=== PATIENT | male | born 1965 | race Caucasian/White ===

== ENCOUNTER 2021-03-26 15:24 | Outpatient (REF) | payer BC, SELFPAY ==
--- NOTE | ~2021-03-26 | CT_ITS ---
EXAMINATION: CT CHEST SCREENING CLINICAL INFORMATION: 28 pack-year smoking history. Current smoker. COMPARISON: None. TECHNIQUE: Multidetector volumetric CT imaging of the chest is performed without contrast using low dose technique. Additional 2D coronal and sagittal reformatted images and axial 3D maximum intensity projection (MIP) images are generated on the CT workstation. This CT examination was performed using dose optimization techniques as appropriate, variously including the following: *Automated exposure control *Adjustment of mA and/or kV according to patient size (this includes techniques or standardized protocols for targeted exams where dose is matched to indication/reason for exam; i.e. extremities or head) *Use of iterative reconstruction technique DLP: 69 mGy-cm FINDINGS: LUNGS: There is mild biapical pleural and parenchymal scarring. There is evidence of emphysema. There is a 2 x 4 mm semisolid or heterogeneous right upper lobe nodule axial image 61 series 5. This is adjacent to an ill-defined area of slight increased attenuation in the right upper lobe coronal reconstructed image 49 and sagittal reconstructed image 73. This area measures approximately 1.5 x 1.7 cm axial image 9 series 4. There is a 2 mm peripheral or subpleural right upper lobe nodule adjacent to the major fissure axial image 170 series 5 The lungs are otherwise clear. No endobronchial or endotracheal lesion is seen. MEDIASTINUM: There is very minimal coronary artery calcification. The mediastinum is otherwise normal. PLEURA: There is no pleural effusion. No pleural mass or thickening. AXILLA: No lymphadenopathy. UPPER ABDOMEN: There are 2 low-attenuation liver lesions probably representing cysts measuring 1.5 x 2.5 cm and the left lobe axial image 55 and 1 x 1.2 cm in the medial segment of the left lobe axial image 63 series 3. OSSEOUS STRUCTURES: There are degenerative changes of the spine. CT/CT lung screening IMPRESSION: Emphysema. Biapical pleural parenchymal scarring. Ill-defined area of slight increased attenuation seen in the right upper lobe and small adjacent 2 x 4 mm semisolid nodule. Minimal coronary artery calcification. Probable liver cysts. ASSESSMENT: Lung-RADS category 3: Probably Benign RECOMMENDATION: Six-month low-dose chest CT follow-up recommended.
== END 2021-03-26 15:25 | disposition home or self-care (01) ==
LOC: HO.CT 15:24
PROVIDERS: PCP Internal Medicine Geriatric Medicine; Visit Provider Physician Assistant Medical
DX: Z12.2 Encounter for screening for malignant neoplasm of respiratory organs (principal); F17.210 Nicotine dependence, cigarettes, uncomplicated
CPT/HCPCS: 71271; G0296

== ENCOUNTER 2023-01-20 07:52 | Outpatient (REF) | payer BC, SELFPAY ==
[2023-01-20 08:11] LABS: Hematocrit 41.4 % (42.0-52.0); Hemoglobin 13.8 g/dl (14.0-18.0); Mean Corpuscular HGB Conc 33.3 g/dl (31.0-36.0); Mean Corpuscular Hemoglobin 30.4 pg (27.0-33.0); Mean Corpuscular Volume 91.2 fL (80.0-98.0); Mean Platelet Volume 8.2 fL (9.4-12.4); Platelet Count 300 X10*3/uL (160-400); Red Blood Count 4.54 X10*6/uL (4.60-5.80); Red Cell Distribution Width 12.6 % (11.0-16.0); White Blood Count 8.5 X10*3/uL (4.8-10.8)
[2023-01-20 08:50] LABS: Alanine Aminotransferase 14 U/L (0-40); Albumin Level 4.3 g/dL (3.5-5.0); Alkaline Phosphatase 67 U/L (39-117); Anion Gap 11 (12-20); Aspartate Amino Transferase 24 U/L (5-37); Bilirubin Total 0.6 mg/dL (0.0-1.0); Blood Urea Nitrogen 12 mg/dL (9-16); Calcium 9.7 mg/dL (8.4-10.2); Carbon Dioxide 26 mmol/L (22-29); Chloride 106 mmol/L (96-108); Cholesterol 323 mg/dL; Estimated Glomerular Filt Rate > 60; Glucose Random 110 mg/dL (60-115); HDL Cholesterol 40 mg/dL; LDL Cholesterol Calculated 236 mg/dl; Sodium 139 mmol/L (135-145); Total Protein 7.3 g/dL (6.5-8.0); Triglycerides 239 mg/dL
[2023-01-20 09:05] LABS: TSH reflex Free T4 1.45 uIU/mL (0.32-4.0)
[2023-01-20 09:07] LABS: Prostate Specific Antigen 0.46 ng/mL (<0.05-4.0)
== END 2023-01-20 07:53 | disposition home or self-care (01) ==
LOC: HO.LAB 07:52
PROVIDERS: PCP Internal Medicine Geriatric Medicine; Visit Provider Internal Medicine Geriatric Medicine
DX: Z12.5 Encounter for screening for malignant neoplasm of prostate (principal); Z13.220 Encounter for screening for lipoid disorders; Z13.1 Encounter for screening for diabetes mellitus; F41.8 Other specified anxiety disorders; N40.1 Benign prostatic hyperplasia with lower urinary tract symptoms; Z72.0 Tobacco use
CPT/HCPCS: 36415; 80053; 80061; 84153; 84443; 85027

== ENCOUNTER 2023-06-12 08:43 | Outpatient (REF) | payer BC, SELFPAY ==
--- NOTE | ~2023-06-12 | CT_ITS ---
EXAMINATION: CT CHEST LOW-DOSE SCREENING WITHOUT CONTRAST HISTORY: Asymptomatic patient meeting criteria for lung screening. PATIENT PACK-YEAR HISTORY: 30 Current Smoker: Yes If former smoker, years since quitting: N/A COMPARISON: CT chest screening 03/26/2021. TECHNIQUE: Multidetector volumetric noncontrast CT imaging of the chest was obtained using low-dose screening CT technique. Axial thin section 0.625 mm reformations in soft tissue and lung windows were obtained. Sagittal and coronal reformations were obtained. Axial MIP images were also created and reviewed. RECONSTRUCTED WIDTH: 1.25 mm x 1.[address] examination was performed using dose optimization techniques as appropriate, variously including the following: *Automated exposure control *Adjustment of mA and/or kV according to patient size (this includes techniques or standardized protocols for targeted exams where dose is matched to indication/reason for exam; i.e. extremities or head) *Use of iterative reconstruction technique TOTAL EXAM DLP: 54 mGy-cm CTDIvol: 1.05 mGy FINDINGS: LUNGS: Mild emphysematous changes are present. Biapical pleural-parenchymal thickening again noted. Lungs bilaterally symmetrically expanded. No effusion or pneumothorax. Central airways patent. Again seen is an ill-defined semisolid density at the right apex measuring about 1.5 cm, unchanged for over 2 years (5:67 compare prior 5:69). 5 mm nodular right upper lobe density just above this is unchanged (5:61 compare prior 5:63). 2 mm perifissural right upper lobe lymph node, unchanged (5:173 compare prior 5:170). There are a few areas of endobronchial secretions noted (for example on the left 5:202 and on the right 5:205). No other pulmonary parenchymal abnormalities are seen. LYMPHATIC STRUCTURES: No mediastinal, hilar or axillary adenopathy. Small amount of right pericardial fluid seen (3:52). THYROID GLAND: Unremarkable to the extent seen. CARDIOVASCULAR STRUCTURES: Aortic and heart size normal. Minimal coronary artery calcifications. No pericardial effusion. UPPER ABDOMEN: Benign hepatic cysts are present. Included portions of the solid organs in the upper abdomen unremarkable on noncontrast imaging. OSSEOUS STRUCTURES: No suspicious focal findings. SPINAL COMPRESSION: Absent. CT/CT lung screening IMPRESSION: Stable ill-defined semisolid density right apex 1.5 cm, unchanged from prior. Small unchanged 5 mm nodule just above this. No findings at this time which are suspicious for malignancy. LUNG-RADS CATEGORY ASSESSMENT: Benign. INCIDENTAL FINDINGS (S CATEGORY): Finding: No incidental findings. Significance category: Normal or normal variant. RECOMMENDATION: Low-dose lung CT overall in 1 year. Visual estimate of coronary calcified plaque burden: Minimal. However, this exam cannot replace a dedicated cardiac CT calcium score for accurate assessment.
== END 2023-06-12 08:44 | disposition home or self-care (01) ==
LOC: HO.CT 08:43
PROVIDERS: PCP Internal Medicine Geriatric Medicine; Visit Provider Physician Assistant Medical
DX: Z12.2 Encounter for screening for malignant neoplasm of respiratory organs (principal); F17.210 Nicotine dependence, cigarettes, uncomplicated
CPT/HCPCS: 71271

== ENCOUNTER 2023-11-24 08:33 | Outpatient (REF) | payer BC, SELFPAY ==
[2023-11-24 08:58] LABS: MANUAL DIFF FLAG NO
[2023-11-24 09:39] LABS: Basophils Percent Auto 0.3 % (0-2); Eosinophils Absolute Auto 0.2 X10*3/uL (0.0-0.4); Eosinophils Percent Auto 2.1 % (0-4); Hemoglobin 14.1 g/dl (14.0-18.0); Imm Gran Abs Auto 0.03 X10*3/uL (0.00-0.03); Imm Gran Pct Auto 0.3 % (0.0-0.4); Lymphocytes Absolute Auto 2.3 X10*3/uL (1.2-4.9); Lymphocytes Percent Auto 26.7 % (20-40); Mean Corpuscular HGB Conc 34.4 g/dl (31.0-36.0); Mean Corpuscular Volume 90.1 fL (80.0-98.0); Mean Platelet Volume 8.3 fL (9.4-12.4); Monocytes Absolute Auto 0.7 X10*3/uL (0.1-1.2); Monocytes Percent Auto 8.3 % (2-11); Neutrophils Absolute Auto 5.3 x10*3/uL (2.0-8.3); Neutrophils Percent Auto 62.3 % (45-73); Platelet Count 318 X10*3/uL (160-400); Red Blood Count 4.55 X10*6/uL (4.60-5.80); Red Cell Distribution Width 12.3 % (11.0-16.0); White Blood Count 8.6 X10*3/uL (4.8-10.8)
[2023-11-24 10:15] LABS: Alanine Aminotransferase 21 U/L (0-40); Albumin Level 4.5 g/dL (3.5-5.0); Alkaline Phosphatase 73 U/L (39-117); Anion Gap 11 (12-20); Aspartate Amino Transferase 31 U/L (5-37); Bilirubin Total 0.6 mg/dL (0.0-1.0); Blood Urea Nitrogen 14 mg/dL (9-16); Calcium 9.6 mg/dL (8.4-10.2); Carbon Dioxide 29 mmol/L (22-29); Chloride 105 mmol/L (96-108); Cholesterol 259 mg/dL (<200); Estimated Glomerular Filt Rate > 60; Glucose Random 115 mg/dL (60-115); HDL Cholesterol 40 mg/dL (>40); Potassium 4.1 mmol/L (3.3-5.1); Sodium 141 mmol/L (135-145); Total Protein 7.4 g/dL (6.5-8.0); Triglycerides 496 mg/dL (<150)
[2023-11-27 08:43] LABS: HIV AB/AG Nonreactive (Nonreactive); HIV Num 1 0.04 S/CO (0.00-0.99); ~HepC Num1 0.06 S/CO (0.00-0.79); ~Hepatitis C Antibody Nonreactive (Nonreactive)
== END 2023-11-24 08:34 | disposition home or self-care (01) ==
LOC: HO.LAB 08:33
PROVIDERS: PCP Internal Medicine Geriatric Medicine; Visit Provider Internal Medicine Geriatric Medicine
DX: E78.00 Pure hypercholesterolemia, unspecified (principal); Z72.0 Tobacco use; F41.8 Other specified anxiety disorders; Z00.00 Encounter for general adult medical examination without abnormal findings; F10.90 Alcohol use, unspecified, uncomplicated; Z11.59 Encounter for screening for other viral diseases; Z11.4 Encounter for screening for human immunodeficiency virus [HIV]
CPT/HCPCS: 36415; 80053; 80061; 85025; 86803; 87389

== ENCOUNTER 2025-02-28 08:53 | Outpatient (AMB) | payer BC, SELFPAY ==
--- NOTE | 2025-02-28 08:58 | MHC.OFFVIS ---
Vital Signs 02/28/25 09:15 Height 5 ft 10 in Weight 154 lb BMI 22.1 BP 126/86 Blood Pressure Location Rt brachial Position Sitting Pulse 80 Pulse Source Pulse Oximeter Pulse Oximetry (%) 98 Oxygen Delivery Method Room Air Intake Visit Reasons: colon adenoma Intake Note: New pt for recall colo screening. CC; Pt denies any GI sx or concerns at this time. Pt overdue for recall colo by 2 years. Research Management Associate Required: No Accompanied by: Self / Same As Patient Allergies No Known Allergies Allergy (Verified 02/28/25 09:08) HPI HPI colon adenoma: Details: 60 year old? male with past medical history of pituitary adenoma transsphenoidal resection in 2018, depression, BPH is here today for pre colonoscopy screening.? Patient was sent to us by his PCP.? History of colonoscopies in 2013 and 2018. Tubular adenomas found. Family history of CRC.? Patient denies any gastrointestinal symptoms in the past or at present.?? Denies history of difficulty with sedation or anesthesia in the past.? Negative for history of sleep apnea.? Denies any history of cardiac, renal, pulmonary, or hepatic disease.?? No history of infectious? diseases like hepatitis A, B, C, HIV or tuberculosis.? Patient is not on any anticoagulation PFSH Medical History Nicotine dependence, cigarettes, uncomplicated History of pituitary adenoma BPH (benign prostatic hyperplasia) Depression Surgical History H/O colonoscopy History of brain surgery Family History Father Colon cancer Social History Alcohol intake: current Alcohol intake frequency: a few times a week Patient Tobacco Use Status: Current everyday Tobacco user Tobacco use type: Cigarette Cigarette Packs Per Day: 1 Years Smoked: 41 - onset 16 -3/4-1ppd x 41yrs, 35pyh Review of Systems Const Denies weight gain and Denies weight loss ENT Reports no additional complaints, Denies dysphagia and Denies odynophagia Card Reports no additional complaints Resp Reports no additional complaints GI Denies abdominal pain, Denies belching, Denies melena, Denies bloating, Denies change in bowel habits, Denies dysphagia, Denies excessive flatus, Denies dyspepsia, Denies heartburn, Denies diarrhea, Denies loose stools, Denies nausea, Denies odynophagia and Denies vomiting Reports no additional complaints Musc Reports no additional complaints Neuro Reports no additional complaints Psych Reports no additional complaints Endo Reports no additional complaints Physical Exam Vital Signs: Last Vital Signs Pulse 80 02/28/25 09:15 BP 126/86 02/28/25 09:15 Pulse Ox 98 02/28/25 09:15 Oxygen Delivery Method Room Air 02/28/25 09:15 BMI result Body Mass Index 22.1 Const General: healthy appearing, no acute distress and well developed Nutritional Appearance: well nourished Orientation/consciousness: patient oriented x3 Resp Effort & Inspection: normal respiratory effort, able to speak in complete sentences, no tracheal deviation and symmetric chest movement Auscultation: clear to auscultation bilaterally Cardio Rate: regular rate GI Inspection: Yes normal to inspection and No distended Palpation (GI): Soft to palpation, not firm, nontender and No hepatosplenomegaly present Auscultation: normal bowel sounds General: Yes no CVA tenderness Back/Spine/Pelvis Back: no CVA tenderness Skin General skin exam: elasticity normal, turgor normal and dry skin Neuro General: patient oriented x3 Psych Appearance: grossly normal Mental Status: mental status grossly normal Assessment & Plan Assessment & Plan (1) Screen for colon cancer: Code(s): Z12.11 - Encounter for screening for malignant neoplasm of colon Plan Patient denies any GI, cardiac or respiratory symptoms.? Denies any issues with anesthesia in the past.? Denies any history of sleep apnea.? No history infectious diseases in the past or present.? Not on any anticoagulation therapy.? Family history of CRC.? Patient denies melena, hematochezia, unintentional weight loss or ribbon like stools.? Discussed at length the pre-procedure,? prep, diet & medications as well as what to expect prior, during and after the procedure.?? Stressed the importance of good bowel prep.? Recommended the use of Vaseline or Calmoseptine OTC & baby wipes with bowel movements to promote comfort.? ?Patient verbalizes understanding and agrees to plan of care.? He was given the opportunity to ask questions and all questions answered.? We will see him after the procedure.? Orders: Referrals GI Procedure Notification Z12.11 - Encounter for screening for malignant neoplasm of colon Medications: New bisacodyl (Dulcolax (bisacodyl)) take 4 tabs at noon the day before your colonoscopy 20 mg (4 x 5 mg) PO ONCE 4 tabs 0RF constipation 1 day Z12.11 - Encounter for screening for malignant neoplasm of colon polyethylene glycol 3350 (Miralax) As directed by gastroenterology department at [facility] 238 grams PO ONCE 238 grams 0RF Z12.11 - Encounter for screening for malignant neoplasm of colon Coding Level of Care Code New Pt Level 3 (15064) Diagnoses Screen for colon cancer Z12.11 Time Spent (min) 40 Comment 30 minutes spent with patient and additional 10 minutes spent reviewing his records
[2025-02-28 09:15] VITALS: BP 126/86; PULSE 80; O2SAT 98; BMI 22.1
--- OUTSIDE RECORDS SUMMARY | 2025-02-28 09:29 | XMS_ITS | Encounter Summary ---
Author Organization [facility] Address [address] [facility] [address] [place] [address] Care Team Providers Care Mulcher Operator Name Role Phone Name, Maxime SLOAN Primary Care Provider [phone] Encounter Details Date Type Department Care Team (Late st Contact Info) Description 09/09/2022 Orders Only [facility] [address] [place] [address] Jeannie Smith LPN Social History Tobacco Use Types Packs/Day Years Used Date Smoking Tobacco: Never Assessed Sex and Gender Information Value Date Recorded Sex Assigned at Male 04/04/2022 10:31 AM EDT Legal Sex Male 10:31 AM EDT Gender Identity Male 04/04/2022 10:31 AM EDT Sexual Orientation Straight 04/04/2022 10 :31 AM EDT documented as of this encounter Plan of Treatment Not on file documented as of this encounter Procedures Procedure Name Priority Date/Time Associated Diagnosis Comments TSH W/REFLEX TO FT4 Routine 01/20/2023 8 :03 AM EDT CBC Routine 01/20/2023 8:03 AM EDT PSA, TOTAL Routine 01/20/2023 8:03 AM EDT LIPID PANEL, STANDARD Routine 01/20/2023 8:03 AM EDT COMPREHENSIVE METABOLIC PANEL Routine 01/20/2023 8:03 AM EDT documented in this encounter Results * PSA,Total (01/20/2023 8:03 AM EDT) Prostate Specific Antigen 0.46 <0.05 - 4.0 ng/mL [facility] Comment:PSA methodology: Jaskaran Winkler i ChemiluminescentMicroparticle Immunoassay (CMIA) 01/20/2023 8:03 AM EDT 01/20/2023 8:04 AM EDT us Maxime Frias MD LAB BLOOD ORDERABLES Final Resul t Performing Organization Address [facility] Co de Phone Number [facility] [address] [place] [phone] * TSH W/Reflex to FT4 (01/20/2023 8:03 AM EDT) TSH reflex Free T4 1.45 0.32 - 4.0 uIU/mL [facility] 01/20/2023 8:03 AM EDT 01/20/2023 8:04 AM EDT us Maxime Frias MD LAB BLOOD ORDERABLES Final Resul t Performing Organization Address [facility] Co de Phone Number [facility] [address] [place] [phone] * Lipid Panel, Standard (01/20/2023 8:03 AM EDT) Triglycerides 239 mg/dL [facility] Comment:Desirable Triglyceri de: less than 150 mg/dLBorderline High Triglyceride 150-199 mg/dLHigh Triglyceride: 200-499 mg/dLVery High Triglyceride: greater than or equal to 5OO mg/dL Cholesterol 323 mg/dL [facility] Comment:Desirable Cholestero l: less than 200 mg/dLBorderline High Cholesterol: 200-239 mg/dLHigh Cholesterol: greater than 239 mg/dL LDL Cholesterol Calculated 236 mg/dl [facility] Comment:Desirable LDL: less than 100 mg/dLNear Optimal/Above Optimal LDL: 110- 129 mg/dLBorderline High LDL: 130-159 mg/dLHigh LDL: 160-189 mg/dLVery High LDL: greater than or equal to 190 mg/dL HDL Cholesterol 40 mg/dL [facility] Comment:Desirable HDL: great er than 40 mg/dL Note: This HDL assay may give artificially low results in patients with liver disease. 01/20/2023 8:03 AM EDT 01/20/2023 8:04 AM EDT us Maxime Name LAB BLOOD ORDERABLES Final Resul t [facility] [address] [place] [phone] * (ABNORMAL) Comprehensive Metabolic Panel (01/20/2023 8:03 AM EDT) Sodium 139 135 - 145 mmol/L [facility] Potassium 4.0 3.3 - 5.1 mmol/L [facility] Chloride 106 96 - 108 mmol/L [facility] Carbon Dioxide 26 22 - 29 mmol/L [facility] Anion Gap 11(L) 12 - 20 [facility] Urea Nitrogen (BUN) 12 9 - 16 mg/dL [facility] Creatinine, Serum 0.91 0.5 - 1.4 mg/dL [facility] Estimated Glomerular Filt Rate >60 [facility] Comment:NOTE: For -Am erican individuals, multiply the result by 1.210.Chronic Kidney Disease: Estimated GFR < 60 mL/min/[id number] Kidney Disease: Estimated GFR < 15 mL/min/1.73m2 Glucose 110 60 - 115 mg/dL [facility] Calcium 9.7 8.4 - 10.2 mg/dL [facility] Bilirubin, Total 0.6 0.0 - 1.0 mg/dL [facility] Aspartate Amino Transferase 24 5 - 37 U/L [facility] Alanine Aminotransferase 14 0 - 40 U/L [facility] Total Protein 7.3 6.5 - 8.0 g/dL [facility] Albumin Level 4.3 3.5 - 5.0 g/dL [facility] Alkaline Phosphatase 67 39 - 117 U/L [facility] 01/20/2023 8:03 AM EDT 01/20/2023 8:04 AM EDT us Maxime Frias MD LAB BLOOD ORDERABLES Final Resul t Performing Organization Address [facility]/ZIP Co de Phone Number [facility] [address] [place] [phone] * (ABNORMAL) CBC (01/20/2023 8:03 AM EDT) White Blood Count 8.5 4.8 - 10.8 X10*3/uL [facility] Red Blood Count 4.54(L) 4.60 - 5.80 X10*6/uL [facility] Hemoglobin 13.8(L) 14.0 - 18.0 g/dl [facility] Hematocrit 41.4(L) 42.0 - 52.0 % [facility] Mean Corpuscular Volume 91.2 80.0 - 98.0 fL [facility] Mean Corpuscular Hemoglobin 30.4 27.0 - 33.0 pg [facility] Mean Corpuscular HGB Conc 33.3 31.0 - 36.0 g/dl [facility] Red Cell Distribution Width 12.6 11.0 - 16.0 % [facility] Platelet Count 300 160 - 400 X10*3/uL [facility] Mean Platelet Volume 8.2(L) 9.4 - 12.4 fL [facility] NRBC Pct Auto 0.0 0.0 - 0.2 /100WBC [facility] NRBC Abs Auto 0.000 0.0 - 0.012 X10*3/uL [facility] 01/20/2023 8:03 AM EDT 01/20/2023 8:04 AM EDT us Maxime Frias MD LAB BLOOD ORDERABLES Final Resul t Performing Organization Address City/[facility]/ZIP Co de Phone Number [facility] [address] [place] [phone] documented in this encounter Visit Diagnoses Not on filedocumented in this encounter Care Teams Mulcher Operator Relationship Specialty Start Date End Date Name, MD Maxime [address] [place] [address] PCP - General Family Medicine 09/14/16 documented as of this encounter
--- OUTSIDE RECORDS SUMMARY | 2025-02-28 09:29 | XMS_ITS | Clinical Summary ---
Author Organization [employer] Address [address] [place] [address] Care Team Providers Care Nutritionist Public Health Name Role Phone Name, Maxime SLOAN Primary Care Provider [phone] Allergies No known active allergies Medications PARoxetine (Paxil) 40 MG tabletIndications:Nina bitual alcohol use,Tobacco use,High cholesterol,Mixed anxiety and depressive disorder,Need for hepatitis C screening test,Screening for HIV (human immunodeficiency virus) Take 1 tablet (40 mg) by mouth in the morning. 90 tablet 3 04/24/20 24 025 Active permethrin (Elimite) 5 % creamIndications:Bassam h Apply to all areas of the body from the neck to soles of feet including under finger and toe nails. Leave for for 8-14 hours before rinsing. May repeat after 14 days if symptoms still persistent 60 g 1 07/03/19 25 Active tamsulosin (Flomax) 0.4 MG 24 hr capsule TAKE 1 CAPSULE BY MOUTH EVERY DAY 1/2 HOUR FOLLOWING THE SAME MEAL EACH DAY 90 capsule 09/11/19 25 Active hydrOXYzine HCl (Atarax) 25 MG tabletIndications:Ra sh TAKE 1 TABLET BY MOUTH IF NEEDED IN THE MORNING,AT NOON,IN THE EVENING AND AT BEDTIME FOR ITCHING 360 tablet 10/26/19 25 Active atorvastatin (Lipitor) 40 MG tablet TAKE 1 TABLET BY MOUTH EVERY DAY 90 tablet 3 12/21/19 25 Active Active Problems Problem Noted Date Diagnosed Date Tobacco use 05/18/2023 Assessment & Plan (12/19/2023 9:49 AM EDT): He is recommended to quit, Low rad CT is negative this year Habitual alcohol use 05/18/2023 Pituitary macroadenoma 01/31/2023 Overview (12/19/2023): s/p resection of pituitary adenoma 2019 at [facility] [place] He does not require endocrine supplementation after surgery He follows with yearly eye exams at [facility] No headaches or residual visual field problems Assessment & Plan (12/19/2023 9:45 AM EDT): s/p resection of pituitary adenoma 2019 at [facility] [place] He does not require endocrine supplementation after surgery He follows with yearly eye exams at [facility] No headaches or residual visual field problems High cholesterol 01/31/2023 Assessment & Plan (12/19/2023 9:46 AM EDT): We discussed results of recent blood work He is recommended to cut down on alcohol Exercise more I doubled his dose of statin Benign prostatic hyperplasia with lower urinary tract symptoms 09/14/2016 Mixed anxiety and depressive disorder 09/14/2016 Encounters Date Type Department Care Team Description 02/20/2025 Patient Outreach [address] [address] Maxime Frias MD Pre-visit Planning ((Unable to reach for PVP screening, LVM) to be completed in office ) 12/20/2024 Refill [facility] [address] [place] [address] Maxime Frias MD from Last 3 Months Immunizations Immunization Administration Dates Next Due Influenza injectable quadriv alent preservative free 05/18/2023,03/01/2022,03/02/2021,2019 Pfizer Covid-19 Vaccine 12+ 04/22/2021,,09/12/2020 Pfizer Covid-19 Vaccine 12+ Bivalent 05/04/2022 Pfizer Covid-19 Vaccine 12+ noah-sucrose ([place] Cap) 09/15/2021 Pfizer Covid-19 Vaccine [id number] 04/22/2023 Pneumococcal Conjugate PCV 20 09/13/2023 Tdap 12/14/2016 Social History Tobacco Use Types Packs/Day Years Used Date Smoking Tobacco: Every Day Cigarettes Tobacco Cessation:Ready to Q uit: Not Asked; Counseling Given: Not Answered Alcohol Use Standard Drinks/Week Comments Yes 12 (1 standard drink = 0.6 oz pu re alcohol) Alcohol Answer Date Recorded How often do you have a drink containing alcohol ? 4 12/19/2023 How many drinks containing a lcohol do you have on a typical day when you are drinking? 1 12/19/2023 How often do you have six or more drinks on one occasion? 3 12/19/2023 Depression Answer Date Recorded Patient Health Questionnaire-9 Score 1 02/12/2024 Patient Health Questionnaire-9 Score 1 02/12/2024 Last PHQ-9: Questionnaire Data Not on file 0 02/12/2024 Housing Stability Answer Date Recorded What is your housing situation today? I have td oscar 12/19/[address] you li ve. Do you have problems with any of the following? None of the above 12/19/2023 Food Insecurity Answer Date Recorded Within the past 12 months, y ou worried that your food would run out before you got money to buy more: Never True 12/19/2023 Within the past 12 months,th e food you bought just didn't last and you didn't have enough money to get more: Never True Transportation Answer Date Recorded In the past 12 months, has l ack of transportation kept you from medical appts, meetings, work or from getting things needed for daily living? No 12/19/2023 Utilities Answer Date Recorded In the past 12 months, has t he electric, gas, oil or water company threatened to shut off services in your home? No 12/19/2023 Depression Answer Date Recorded Patient Health Questionnaire-2 Score 0 02/12/2024 Internet Access Answer Date Recorded Internet Access Q1 No 02/05/2024 Internet Access Q2 I do not want or need it 07/2023 Sex and Gender Information Value Date Recorded Sex Assigned at Male 04/04/2022 10:31 AM EDT Legal Sex Male 10:31 AM EDT Gender Identity Male 04/04/2022 10:31 AM EDT Sexual Orientation Straight 04/04/2022 10 :31 AM EDT Last Filed Vital Signs Vital Sign Reading Time Taken Comments Blood Pressure 131/78 09/25/2024 9:52 AM EDT Pulse 63 09/25/2024 9:52 AM EDT Temperature 36.1 C (96.9 F) 09/25/2024 9:52 AM EDT Respiratory Rate 18 09/25/2024 9:52 AM EDT Oxygen Saturation 96% 09/25/2024 9:52 AM EDT Inhaled Oxygen Concentration - - Weight 72.9 kg (160 lb 12.8 oz) 09/25/2024 9:52 AM EDT Height 177.8 cm (5' 10 ) 09/25/2024 9:52 AM EDT Body Mass Index 23.07 09/25/2024 9:52 AM EDT Plan of Treatment Health Maintenance Due Date Last Done Comments CT Colonography 1964 FIT DNA/Cologuard 1964 FIT 1964 FOBT 1964 Sigmoidoscopy 1964 Disability Screening 1964 Alcohol/Substance Use Screening 1976 Zoster Vaccines (1 of 2) 02/01/2014 Colonoscopy 11/10/2022 11/10/2017 Colorectal Cancer Screening 11/10/2022 SDOH Screening 12/18/2024 12/19/2023 COVID-19 Vaccine ( season) 2025 04/22/2023, 05/04/2022, 09/15/2021, Additional history exists Influenza Vaccine (#1) 2025 , 03/01/2022, 03/02/2021, Additional history exists Depression Screening 02/11/2025 02/12/2024, 02/12/20 24 Tobacco Screening 09/25/2025 09/25/2024 DTaP/Tdap/Td Vaccines (2 - Td or Tdap) 12/14/2026 12/14/2016 Lipid Panel 11/23/2028 11/24/2023, 01/20/2023 RSV Patients and Patients Aged 60 years or older (1 - 1-dose 75+ series) 02/01/2039 Pneumococcal Vaccine: 50+ Years Completed 09/13/2023 HIV Screening Completed 11/24/2023 Hepatitis C Screening Completed 11/24/2023 HIB Vaccines Aged Out No longer eligi ble based on patient's age to complete this topic HPV Vaccines Aged Out No longer eligi ble based on patient's age to complete this topic Hepatitis A Vaccines Aged Out No long er eligible based on patient's age to complete this topic Hepatitis B Vaccines Aged Out No long er eligible based on patient's age to complete this topic IPV Vaccines Aged Out No longer eligi ble based on patient's age to complete this topic Meningococcal B Vaccine Aged Out No l onger eligible based on patient's age to complete this topic Meningococcal Vaccine Aged Out No fatou eduardo eligible based on patient's age to complete this topic RSV under 20 months Aged Out No longe r eligible based on patient's age to complete this topic Rotavirus Vaccines Aged Out No longer eligible based on patient's age to complete this topic Procedures Procedure Name Priority Date/Time Associated Diagnosis Comments HEPATITIS C ANTIBODY Routine 11/24/2023 8:57 AM EDT Habitual alcohol use Tobacco use High cholesterol Mixed anxiety and depressive disorder Need for hepatitis C screening test Screening for HIV (human immunodeficiency virus) HIV 1/2 ANTIGEN/ANTIBODY, FOURTH GENERATION W/RFL Routine 11/24/2023 8:57 AM EDT Habitual alcohol use Tobacco use High cholesterol Mixed anxiety and depressive disorder Need for hepatitis C screening test Screening for HIV (human immunodeficiency virus) LIPID PANEL, STANDARD Routine 11/24/2023 8:57 AM EDT Habitual alcohol use Tobacco use High cholesterol Mixed anxiety and depressive disorder Need for hepatitis C screening test Screening for HIV (human immunodeficiency virus) HM COLONOSCOPY Routine 11/10/2017 from Last 3 Months or Most Recently Relevant to Health Maintenance Results * Hepatitis C Ab (11/24/2023 8:57 AM EDT) Hepatitis C Antibody Nonreactive Nonreactive [facility] Comment:Antibodies to HCV no t detected; does not exclude early acuteHCV infection. Blood Venous blood specimen / Unknown 11/24/2023 8:57 AM EDT 11/24/2023 8:57 AM EDT us Maxime Frias MD LAB BLOOD ORDERABLES Final Resul t [facility] [address] [place] [phone] * HIV-1/2 Antigen and Antibodies, Fourth Generation, with Reflexes (11/24/2023 8:57 AM EDT) HIV AB/AG Nonreactive Nonreactive [facility] Comment:HIV-1 p24 Ag and/or HIV-1/HIV-2 Ab not detected.A test result that is nonreactive does not exclude thepossibility of exposure to or infection with HIV-1 and/orHIV-2. Nonreactive results in this assay for individualswith prior exposure to HIV-1 and/or HIV-2 may be due toantigen and antibody levels that are below the limit ofdetection of this assay.The iHandle HIV Ag/Ab Combo assay result andsupplemental assay results should be interpreted inconjunction with the patient's clinical presentation,history and other laboratory results. If the results areinconsistent with clinical evidence, additional testing issuggested to confirm the result. Blood Venous blood specimen / Unknown 11/24/2023 8:57 AM EDT 11/24/2023 8:57 AM EDT us Maxime Name LAB BLOOD ORDERABLES Final Resul t [facility] [address] [place] [phone] * (ABNORMAL) Lipid Panel, Standard (11/24/2023 8:57 AM EDT) Triglycerides 496(H) <150 mg/dL [facility] Comment:Desirable Triglyceri de: less than 150 mg/dLBorderline High Triglyceride 150-199 mg/dLHigh Triglyceride: 200-499 mg/dLVery High Triglyceride: greater than or equal to 5OO mg/dL Cholesterol 259(H) <200 mg/dL [facility] Comment:Desirable Cholestero l: less than 200 mg/dLBorderline High Cholesterol: 200-239 mg/dLHigh Cholesterol: greater than 239 mg/dL LDL Cholesterol Calculated TNP <100 mg/dL [facility] Comment:Unable to calculate the LDL. The formula of FriedwaldAraiza, and Moe is only valid if the triglycerides areless than 400 mg/dl. HDL Cholesterol 40(L) >40 mg/dL [facility] Comment:Desirable HDL: great er than 40 mg/dL Note: This HDL assay may give artificially low results in patients with liver disease. Blood Venous blood specimen / Unknown 11/24/2023 8:57 AM EDT 11/24/2023 8:57 AM EDT us Maxime Frias MD LAB BLOOD ORDERABLES Final Resul t [facility] [address] [place] [phone] * (ABNORMAL) Colonoscopy (11/10/2017) Colonoscopy Abnormal(A ) Normal us Maxime Frias MD HEALTH MAINTENANCE Final Result from Last 3 Months or Most Recently Relevant to Health Maintenance Insurance HMO Care Teams Nutritionist Public Health Relationship Specialty Start Date End Date Name, MD Maxime [address] [place] [address] PCP - General Family Medicine 09/14/16
--- OUTSIDE RECORDS SUMMARY | 2025-02-28 09:29 | XMS_ITS | Encounter Summary ---
Author Organization [employer] Address [address] [facility] [address] [address] [place] [address] Care Team Providers Care Refrigerator Crater Name Role Phone Name, Maxime SLOAN Primary Care Provider [phone] Reason for Visit * Reason Onset Date Comments Med Refill 05/09/2023 Encounter Details Date Type Department Care Team ([facility] st Contact Info) Description 05/09/2023 Telephone [facility] [address] [place], [place] [phone] Name, MD Maxime [address] [place] [address] Med Refill Social History Tobacco Use Types Packs/Day Years Used Date Smoking Tobacco: Every Day Cigarettes Alcohol Use Standard Drinks/Week Comments Yes 12 (1 standard drink = 0.6 oz pu re alcohol) Depression Answer Date Recorded Patient Health Questionnaire-9 Score 6 01/31/2023 Housing Stability Answer Date Recorded What is your housing situation today? I have td oscar 04/04/[address] you li ve. Do you have problems with any of the following? None of the above 04/04/2023 Food Insecurity Answer Date Recorded Within the past 12 months, y ou worried that your food would run out before you got money to buy more: Never True 04/04/2023 Within the past 12 months,th e food you bought just didn't last and you didn't have enough money to get more: Never True Transportation Answer Date Recorded In the past 12 months, has l ack of transportation kept you from medical appts, meetings, work or from getting things needed for daily living? No 04/04/2023 Utilities Answer Date Recorded In the past 12 months, has t he electric, gas, oil or water company threatened to shut off services in your home? No 04/04/2023 Depression Answer Date Recorded Patient Health Questionnaire-2 Score 2 01/31/2023 Sex and Gender Information Value Date Recorded Sex Assigned at Male 04/04/2022 10:31 AM EDT Legal Sex Male 10:31 AM EDT Gender Identity Male 04/04/2022 10:31 AM EDT Sexual Orientation Straight 04/04/2022 10 :31 AM EDT documented as of this encounter Miscellaneous Notes * Telephone Encounter - Jeannie mSith LPN - 05/09/2023 1:07 PM EST Flomax and Paxil were sent to [facility] on 04/17/23 90 day supply and Atorvastatin was sent on 01/31/23 with 11 refills. * Telephone Encounter - Shazia Gonzales - 05/09/2023 1:03 PM EST Tc from requesting med refill on; atorvastatin (Lipitor) 20 MG tablet PARoxetine (Paxil) 20 MG tablet tamsulosin (Flomax) 0.4 MG 24 hr capsule documented in this encounter Plan of Treatment Not on file documented as of this encounter Visit Diagnoses Not on filedocumented in this encounter Additional Health Concerns Assessment Noted Time PHQ-9 Depression Total Score: 6 02/01/20 23 9:29 AM EDT documented as of this encounter Care Teams Refrigerator Crater Relationship Specialty Start Date End Date Name, MD Maxime [address] [place] [address] PCP - General Family Medicine 09/14/16 documented as of this encounter
== END 2025-02-28 09:42 | disposition home or self-care (01) ==
LOC: HO.HGI 08:54
PROVIDERS: PCP Internal Medicine Geriatric Medicine; Visit Provider Nurse Practitioner Family
DX: Z01.818 Encounter for other preprocedural examination (principal); Z12.11 Encounter for screening for malignant neoplasm of colon; Z86.0101 Personal history of adenomatous and serrated colon polyps
CPT/HCPCS: S0285